=== PATIENT | male | born 1985 | race African-American/Black ===

== ENCOUNTER 2020-03-24 18:45 | Emergency (ER) | payer OTHER ==
[~2020-03-24] VITALS: Ht 188 cm; Wt 145.2 kg
[2020-03-24 19:10] LABS: URINE BILIRUBIN NEGATIVE (Negative); URINE BLOOD 3+ (Negative); URINE CLARITY SL CLOUDY; URINE COLOR YELLOW; URINE GLUCOSE-RANDOM* NEGATIVE (Negative); URINE KETONES NEGATIVE (Negative); URINE NITRITE-REFLEX NEGATIVE (Negative); URINE PROTEIN (DIPSTICK) 1+ (Negative); URINE SPECIFIC GRAVITY >= 1.030 (1.005-1.035); URINE UROBILINOGEN 0.2 E.U./dl (0.2-1.0)
[2020-03-24 19:21] LABS: URINE LEUKOCYTES-REFLEX 2+ (Negative)
[2020-03-24 19:48] LABS: BACTERIA-REFLEX 1-9 Few /HPF (None Seen); CASTS None Seen /LPF (None Seen); SQUAMOUS None Seen /LPF (0-3); URINE RBC >20 Many /HPF (0-2); URINE WBC-REFLEX >25 Many /HPF (0-5)
[2020-03-24 19:49] LABS: CRYSTALS None Seen /LPF (None Seen)
[2020-03-24 21:58] LABS: ABSOLUTE NEUTROPHILS 10.9 thou/uL (1.4-8.2); BASOPHILS 0.7 % (0.0-2.0); HEMATOCRIT 43.3 % (42.0-52.0); HEMOGLOBIN 14.1 gm/dL (14.0-18.0); LYMPHOCYTES 13.4 % (24.0-44.0); MCH 27.3 pg (26.0-34.0); MCHC 32.5 g/dL (28.0-37.0); MONOCYTES 10.6 % (1.0-8.0); PLATELET COUNT 430 thou/uL (150-400); POLYS 73.3 % (36.0-66.0); RBC 5.15 mil/uL (4.50-6.00); RDW 14.6 % (10.5-14.5); WBC 14.8 thou/uL (4.0-11.0)
[2020-03-24 22:07] LABS: ALBUMIN 3.6 g/dL (3.4-5.0); CREATININE 1.6 mg/dL (0.7-1.3); POTASSIUM 3.8 mmol/L (3.5-5.1); TOTAL BILIRUBIN 0.3 mg/dL (0.2-1.0); TOTAL PROTEIN 8.1 g/dL (6.4-8.2)
[2020-03-24] MEDS ORDERED: CIPROFLOXACIN500 M1 PO (23:07)
[2020-03-24 23:33] VITALS: BP 116/74
== END 2020-03-24 23:34 | disposition home or self-care (01) ==
LOC: ER 18:45
PROVIDERS: Emergency Medicine
DX: N30.01 Acute cystitis with hematuria (principal); I10 Essential (primary) hypertension